=== PATIENT | male | born 1980 | race Caucasian/White ===

== ENCOUNTER 2019-12-28 17:44 | Emergency (ER) | payer SELFPAY ==
[~2019-12-28] VITALS: Ht 170.1 cm; Wt 64.7 kg
[2019-12-28 17:50] VITALS: BP 132/98
--- NOTE | 2019-12-28 18:01 | ED General ---
General Chief Complaint: Laceration Stated Complaint: HEAD LAC History of Present Illness Date Seen by Provider: Dec 28, 2019 Time Seen by Provider: 18:00 Initial Comments 39-year-old male presents with injury to his head from just prior to arrival. P clemente states he hit his head on his SUV chase door which was fully open and he raised his head hitting it on a corner. Denies any loss of consciousness or significant headache. Denies feeling dazed or confused or dizzy. Denies any nausea or vomiting. Had a fair amount of bleeding which is slowed on arrival Allergies and Home Medications Allergies Coded Allergies: No Known Drug Allergies (Unverified , 12/28/19) Home Medications No Active Prescriptions or Reported Meds Patient Home Medication List Home Medication List Reviewed: Yes Review of Systems Review of Systems Constitutional: no symptoms reported; No dizziness, No fever, No malaise, No weakness EENTM: see HPI, no symptoms reported Skin: see HPI, other (small laceration to scalp and forehead) Psychiatric/Neurological: Denies Headache, Denies Numbness, Denies Paresthesia Past Lyewyvf-Dnwzag-Viykte Hx Past Med/Social Hx: Reviewed Nursing Past Med/Soc Hx Patient Social History Recent Foreign Travel: No Contact w/Someone Who Travel: No Physical Exam Vital Signs Capillary Refill : Height, Weight, BMI Height: '" Weight: lbs. oz. kg; BMI Method: General Appearance: No Apparent Distress, WD/WN Eyes: Bilateral Eye Normal Inspection, Bilateral Eye PERRL, Bilateral Eye EOMI HEENT: PERRL/EOMI, Normal ENT Inspection Neck: Non Tender, Supple Neurologic/Psychiatric: Alert, Oriented x3, No Motor/Sensory Deficits Skin: Normal Color, Warm/Dry, Other (superficial lacerations: forehead, linear 0.5cm, vertex scalp, linear 0.5cm. + hemostasis. NO repair needed. Wound marginss well appoximated, shallow and do not pull apart.) Progress/Results/Core Measures Suspected Sepsis SIRS Temperature: Pulse: Respiratory Rate: Blood Pressure / Mean: Results/Orders Vital Signs/I&O Capillary Refill : Departure Impression Primary Impression: Superficial laceration of scalp Qualified Codes: S01.01XA - Laceration without foreign body of scalp, initial encounter Disposition: HOME, SELF-CARE Condition: Stable Departure-Patient Inst. Decision time for Depature: 18:01 Referrals: NO,LOCAL PHYSICIAN (PCP/Family) Primary Care Physician Patient Instructions: Wound Care (DC) Add. Discharge Instructions: Follow-up with your primary care physician for any further questions or problems related to your injury today. All discharge instructions reviewed with patient and/or family. Voiced understanding. Scripts No Active Prescriptions or Reported Meds TYE MANNING DO Dec 28, 2019 18:01
== END 2019-12-28 18:05 | disposition home or self-care (01) ==
LOC: ER FS 17:46
DX: S01.01XA Laceration without foreign body of scalp, initial encounter (principal); W22.8XXA Striking against or struck by other objects, initial encounter
CPT/HCPCS: 99282